=== PATIENT | male | born 1955 | race Caucasian/White ===

== ENCOUNTER 2022-03-05 10:56 | Day surgery (SDC) | payer MEDICARE, BC ==
[2022-03-05] VITALS (13 sets, daily range): BP systolic 115–142; BP diastolic 68–86
[~2022-03-05] VITALS: Ht 180.3 cm; Wt 77.4 kg
[2022-03-05] MEDS ORDERED: FERR324T23 PO (11:41)
[2022-03-05] MEDS ORDERED: MULT-1141 PO (11:42)
[2022-03-05] MEDS ORDERED: CYAN50003 PO (11:43)
--- NOTE | 2022-03-05 11:45 | NUR ---
Notified Dr. Mcmahon WBC 31.4.
[2022-03-05 11:53] LABS: BASOPHILS # (AUTO) 0.3 X10'3 (0-0.2); BASOPHILS % (AUTO) 0.8 % (0-1); EOSINOPHILS # (AUTO) 12.8 X10'3 (0-0.9); EOSINOPHILS % (AUTO) 40.9 % (0-6); HEMATOCRIT 38.6 % (42.0-52.0); HEMOGLOBIN 12.7 g/dl (14.0-17.9); LYMPHOCYTES # (AUTO) 14.1 X10'3 (1.1-4.8); MEAN PLATELET VOLUME 6.7 FL (7.4-10.4); MONOCYTES # (AUTO) 0.9 X10'3 (0-0.9); MONOCYTES % (AUTO) 2.8 % (2-12); NEUTROPHILS # (AUTO) 3.3 X10'3 (1.8-7.7); NEUTROPHILS % (AUTO) 10.5 % (42-75); PLATELET COUNT 241 X10'3 (140-440); RED BLOOD COUNT 4.11 X10'6 (4.70-6.10); RED CELL DISTRIBUTION WIDTH 17.6 % (11.5-14.5)
[2022-03-05 11:57] LABS: WHITE BLOOD COUNT 31.4 X10'3 (4.5-11.0)
[2022-03-05] MEDS ORDERED: LIDOcaine 1%/PF 5ML 10 MG/ML VIAL ONE (12:24)
[2022-03-05] MEDS ORDERED: gelatin sponge, absorbable (Gelfoam 12-7MM) sponge TP ONE (12:34)
[2022-03-05] MEDS ORDERED: midazolam 1 mg/ML 2ml injection ONE (12:34)
[2022-03-05] MEDS ORDERED: fentaNYL/PF 50MCG/1 ML 2ML syringe ONE (12:34)
[2022-03-05 13:18] LABS: TOTAL CELLS COUNTED 100
[2022-03-05 13:19] LABS: ANISOCYTOSIS 1+; PLATELET ESTIMATE NORMAL
== END 2022-03-05 14:25 | disposition home or self-care (01) ==
LOC: SSTAY O 10:56
PROVIDERS: ATTEND Preventive Medicine Aerospace Medicine
DX: R59.0 Localized enlarged lymph nodes (principal); C85.93 Non-Hodgkin lymphoma, unspecified, intra-abdominal lymph nodes; Z88.0 Allergy status to penicillin; Z79.899 Other long term (current) drug therapy; Z98.890 Other specified postprocedural states
CPT/HCPCS: 36415; 38505; 77012; 85025; 85610; 88184; 88185; 99152; 99153; J2250; J3010; J3490; 85007; 88305; 88341; 88342

== ENCOUNTER 2024-07-07 10:07 | Emergency (ER) | payer BC, MEDICARE, OTHER ==
[~2024-07-07] VITALS: Ht 177.8 cm; Wt 81.8 kg
[~2024-07-07 10:07] MED LIST: CYAN50007 PO; FERR324T23 PO; MULT-1141 PO
[2024-07-07 10:10] VITALS: BP 140/79; PULSE 73; TEMP 97.5; O2SAT 99
[2024-07-07] MEDS ORDERED: METH-798 PO (12:33)
[2024-07-07] MEDS: ketorolac trometh 15mg/ml vial 15 MG/ML ML IM ONE (12:49)
[2024-07-07 12:55] VITALS: RESP 16
== END 2024-07-07 12:56 | disposition home or self-care (01) ==
LOC: ER 10:07
DX: M54.2 Cervicalgia (principal); Z88.0 Allergy status to penicillin; Z79.899 Other long term (current) drug therapy; V43.52XA Car driver injured in collision with other type car in traffic accident, initial encounter; Y93.89 Activity, other specified; Y92.89 Other specified places as the place of occurrence of the external cause; Y99.8 Other external cause status
CPT/HCPCS: 72040; 96372; 99283; J1885